=== PATIENT | male | born 2000 ===

== ENCOUNTER 2020-12-27 20:26 | Emergency (ER) | payer SELFPAY ==
[2020-12-27 20:25] VITALS: BP 0/0; PULSE 0; RESP 0
--- NOTE | 2020-12-27 20:30 | PC.NURSE ---
Per Angle Shear Set Up Operator, after speaking with pt's fiance, states that the patient could have possibly taken a perc 30 or fentanyl felipe . Pt is known to use opiods per EMS.
--- NOTE | 2020-12-27 20:35 | PC.NURSE ---
No cardiac activity per bedside ultrasound. Code resuscitation efforts ceased at this time. Pt has no spontaneous respirations or pulse.
--- NOTE | 2020-12-27 20:40 | PC.NURSE ---
MYSELF AND DR YOON WENT TO SPEAK TO ROXANA TO NOTIFY HER OF OUR EFFORTS. ROXANA INCONSOLABLE AT THIS TIME, SHE WAS BANGING HER HEAD ON THE WALL AND TRYING TO CHOKE HERSELF. TRIED TO CALM HER, SHE SAID SHE WAS GOING TO CALL THE GRANDMOTHER. PATIENT LATER BROUGHT BACK TO ROOM WITH SAL RIVERS AND .
--- NOTE | 2020-12-27 20:40 | PC.NURSE ---
Marilyn, scrap charger, and Dr. Villafuerte to family services room to speak with vikas.
--- NOTE | 2020-12-27 20:50 | ED.GENADULT ---
HPI - General Adult General Chief complaint: Overdose Stated complaint: od/code Time Seen by Provider: 12/27/20 20:46 History of Present Illness HPI narrative: Patient is a 20-year-old gentleman who presents to the emergency department with chief complaint of cardiac arrest. Apparently the patient has a history of opiate abuse and takes oxycodone 30 mg or fentanyl beans per the patient significant other she stated that she was trying to call him and he would not respond so she walked home. Whenever she got back to the trailer that they live then she found him face down unresponsive and no pulse. When police arrived at the scene they started CPR when EMS arrived they started ACLS protocols. Patient was asystole upon initial cardiac rhythm ACLS protocols were continued and the patient was transported to the emergency department. Patient had approximately at least 20 to 30 minutes of downtime prior to ACLS being initiated. Upon arrival to the emergency department the patient continued in cardiac arrest with no pulse and was asystole throughout 3 rounds of ACLS. Related Data Allergies Allergy/AdvReac Type Severity Reaction Status Date / Time prednisone Allergy Unknown Verified 05/21/13 14:41 Review of Systems Review of Systems: ROS unobtainable: Yes unobtainable due to medical condition PMFSH Social History Social History Smoking status: Never smoker Alcohol intake: never Substance use type: marijuana Comments Social history the patient has history of opiate use Exam Narrative: Exam Narrative: GENERAL: Unresponsive HEAD: Normocephalic, atraumatic. EYES: Fixed and dilated ENT: Nares clear, no rhinorrhea or epistaxis. Mucous membranes moist. Patient intubated by EMS prior to arrival NECK: Supple. CHEST: Clear to auscultation. With bag valve ventilation. HEART: Regular rate and rhythm. No murmur heard. Normal peripheral pulses. ABDOMEN: Soft, nontender, nondistended, normal active bowel sounds. EXTREMITIES: No signs of trauma SKIN: Cool dry no rash NEURO: Unresponsive. PSYCH: Unable to obtain Course Course Emergency Course: The patient's initial presenting rhythm was asystole the patient was treated with 3 rounds of ACLS with continued asystole he was given sodium bicarbonate to treat for metabolic acidosis with no return of spontaneous circulation. Given the significant downtime the fixed pupils and continued asystole resuscitative efforts were terminated at 2034 Procedures Other Procedure Procedure 1: Other Procedure: Bedside cardiac ultrasound was performed by me that showed no cardiac activity Discharge Plan Discharge Clinical Impression: Cardiopulmonary arrest Patient Disposition: Condition: Follow-up/Referrals: PHYSICIAN,TERRITORY SALES EXECUTIVE [Primary Care Provider] - Time of Disposition: 20:35
--- NOTE | 2020-12-27 21:00 | PC.NURSE ---
[facility] notified per Marilyn Tolbert RN, charge.
--- NOTE | 2020-12-27 21:27 | PC.NURSE ---
Per charge entry specialist network contractor enroute.
--- NOTE | 2020-12-27 22:35 | PC.NURSE ---
Lithoduplicator Operator remains at bedside.
--- NOTE | 2020-12-27 22:44 | PC.NURSE ---
SPOKE TO MOTHER, SHE WILL COME AND ASSISTANT BANQUET MANAGER HIS WALLET AND CIGS TOMORROW. PATIENT HAS $121 IN [place] IN HIS WALLET. VERIFIED BY MYSELF AND SAL RIVERS.
--- NOTE | 2020-12-27 23:07 | PC.NURSE ---
Recapper request all tubes be removed and family may visit with the patient. Pt will be a spinning frame changer's case pending toxic screen.
--- NOTE | 2020-12-27 23:24 | PC.NURSE ---
Family at bedside with patient and SILVESTRE Mann.
--- NOTE | 2020-12-28 00:13 | PC.NURSE ---
Family leaves facility after visiting with patient. Pt placed in [facility] and preparing to transport to [facility] per coroners request to continue inquest.
--- NOTE | 2020-12-28 01:11 | PC.NURSE ---
MORA FROM [facility] CALLED AND STATED THEY GOT PERMISSION FROM THE FAMILY AND WILL SEND SOMEONE OUT TO PICK THE PATIENT UP.
--- NOTE | 2020-12-29 00:17 | PC.NURSE ---
MOTHER CALLED WITH HOME INFORMATION. [facility] [place] CALLED [facility] TO UPDATE THEM.
== END 2020-12-27 20:35 | disposition expired ==
PROVIDERS: Emergency Provider Emergency Medicine
DX: I46.9 Cardiac arrest, cause unspecified (principal)
CPT/HCPCS: 92950; 99285; J0171